=== PATIENT | female | born 1980 | race African-American/Black ===

== ENCOUNTER 2017-09-07 08:02 | Emergency (ER) | payer OTHER ==
[~2017-09-07] VITALS: Ht 170.2 cm; Wt 97.0 kg
[2017-09-07] MEDS ORDERED: SODIUM CHLORIDE 0.9% 1,000 ML IV ONE ×2 (09:13)
[2017-09-07] MEDS ORDERED: ONDANSETRON HCL 4MG/2ML VIAL IV ONE (09:15)
[2017-09-07] MEDS ORDERED: INSULIN REGULAR (HUMULIN R) 300UNITS/3ML SUBCUT ONE (09:15)
[2017-09-07] MEDS ORDERED: KETOROLAC 30MG/ML VIAL IV ONE (09:15)
[2017-09-07 09:39] LABS: BASOPHILS % 0.9 % (0.0-2.0); EOSINOPHILS % 2.2 % (0.0-5.0); HEMATOCRIT. 36.5 % (36.0-48.0); HEMOGLOBIN. 12.5 g/dL (12.0-16.0); LYMPHOCYTES % 21.1 % (20.0-50.0); MEAN CORPUSCULAR HEMOGLOBIN 28.5 pg (28.0-32.0); MEAN CORPUSCULAR VOLUME 83.1 fL (81.0-99.0); MEAN PLATELET VOLUME 8.9 fl (7.4-10.4); MONOCYTES % 5.7 % (2.0-8.0); NEUTROPHILS % 70.1 % (40.0-76.0); PLATELET 259 x1000/uL (130-400); RED BLOOD CELL COUNT 4.39 mill/uL (4.2-5.4); RED CELL DISTRIBUTION WIDTH 13.3 % (11.6-14.6)
[2017-09-07 09:45] LABS: CHLORIDE 100 mEq/L (98-107)
[2017-09-07 09:50] LABS: HCG SCREEN NEGATIVE
[2017-09-07 09:51] LABS: BETA HYDROXYBUTYRATE 0.6 mMol/L (0.0-0.3)
[2017-09-07 12:05] VITALS: BP 112/64
== END 2017-09-07 12:07 | disposition home or self-care (01) ==
LOC: ER 08:49
DX: E11.65 Type 2 diabetes mellitus with hyperglycemia (principal); S90.562A Insect bite (nonvenomous), left ankle, initial encounter; S90.561A Insect bite (nonvenomous), right ankle, initial encounter; Z88.3 Allergy status to other anti-infective agents; Z79.4 Long term (current) use of insulin; Z98.890 Other specified postprocedural states; W57.XXXA Bitten or stung by nonvenomous insect and other nonvenomous arthropods, initial encounter; Y93.89 Activity, other specified; Y92.018 Other place in single-family (private) house as the place of occurrence of the external cause
CPT/HCPCS: 36415; 71045; 80053; 81025; 82010; 82962; 84703; 85025; 93005; 93970; 96361; 96372; 96374; 96375; 99285; J1815; J1885; J2405; J7030

== ENCOUNTER 2017-10-02 23:35 | Emergency (ER) | payer OTHER ==
[~2017-10-02] VITALS: Ht 170.2 cm; Wt 100.0 kg
[2017-10-03] MEDS ORDERED: ASPIRIN 81MG TABLET PO ONE (02:00)
[2017-10-03 02:36] LABS: BASOPHILS % 0.9 % (0.0-2.0); EOSINOPHILS % 2.1 % (0.0-5.0); HEMATOCRIT. 37.6 % (36.0-48.0); HEMOGLOBIN. 12.8 g/dL (12.0-16.0); LYMPHOCYTES % 21.6 % (20.0-50.0); MEAN CORPUSCULAR HEMOGLOBIN 28.7 pg (28.0-32.0); MEAN CORPUSCULAR VOLUME 84.2 fL (81.0-99.0); MEAN PLATELET VOLUME 9.1 fl (7.4-10.4); MONOCYTES % 6.5 % (2.0-8.0); NEUTROPHILS % 68.9 % (40.0-76.0); PLATELET 279 x1000/uL (130-400); RED BLOOD CELL COUNT 4.47 mill/uL (4.2-5.4); RED CELL DISTRIBUTION WIDTH 13.5 % (11.6-14.6)
[2017-10-03 02:45] LABS: CHLORIDE 96 mEq/L (98-107); PARTIAL THROMBOPLASTIN TIME 26.5 sec (23.4-31.0); PROTHROMBIN TIME 10.3 sec (9.4-11.6)
[2017-10-03 02:52] LABS: ETHANOL BLOOD < 10 mg/dL
[2017-10-03 02:53] LABS: CLARITY URINE CLEAR (CLEAR); COLOR URINE YELLOW (YELLOW); KETONES URINE NEGATIVE (NEGATIVE); LEUKOCYTE ESTERASE URINE NEGATIVE (NEGATIVE); NITRITE URINE NEGATIVE (NEGATIVE); OCCULT BLOOD URINE NEGATIVE (NEGATIVE); PH URINE 6.5 (4.5-8.0); PROTEIN URINE NEGATIVE (NEGATIVE); SPECIFIC GRAVITY URINE 1.031 (1.005-1.030)
[2017-10-03 04:04] LABS: *BARBITURATES SCREEN URINE NEGATIVE (NEGATIVE)
[2017-10-03 04:05] LABS: OPIATES URINE SCREEN NEGATIVE (NEGATIVE)
[2017-10-03 04:07] LABS: *COCAINE SCREEN URINE NEGATIVE (NEGATIVE)
[2017-10-03 04:08] LABS: *BENZODIAZEPINES SCREEN URINE NEGATIVE (NEGATIVE); METHADONE URINE SCREEN NEGATIVE (NEGATIVE)
[2017-10-03 04:09] LABS: BETA HYDROXYBUTYRATE 0.1 mMol/L (0.0-0.3)
[2017-10-03 04:10] LABS: *AMPHETAMINES SCREEN URINE NEGATIVE (NEGATIVE)
[2017-10-03 04:11] LABS: PHENCYCLIDINE URINE SCREEN NEGATIVE (NEGATIVE)
[2017-10-03 04:22] LABS: CANNABINOID URINE SCREEN NEGATIVE (NEGATIVE)
[2017-10-03] MEDS ORDERED: SODIUM CHLORIDE 0.9% 1,000 ML IV ONE (04:30)
[2017-10-03] MEDS ORDERED: INSULIN LISPRO 100 UNITS/ML SUBCUT ONE (04:30)
[2017-10-03] MEDS ORDERED: INSULIN GLARGINE UD 100 UNITS/ML SYR SUBCUT ONE (04:30)
[2017-10-03 05:47] VITALS: BP 130/85
== END 2017-10-03 05:48 | disposition home or self-care (01) ==
LOC: ER 10-03 00:59 → CANBEDREQ 10-03 05:57
DX: E11.65 Type 2 diabetes mellitus with hyperglycemia (principal); R07.89 Other chest pain; Z88.1 Allergy status to other antibiotic agents; Z98.890 Other specified postprocedural states
CPT/HCPCS: 36415; 71045; 80053; 80305; 81003; 81025; 82010; 82962; 83880; 84484; 85025; 85610; 85730; 93005; 96372; 99285; G0482; J1815; J7030; Z7610